=== PATIENT | male | born 1980 | race African-American/Black ===

== ENCOUNTER 2022-02-04 11:33 | Emergency (ER) | payer OTHER ==
[2022-02-04 12:09] LABS: BASOPHILS # (AUTO) 0.1 10^3/uL (0.0-0.1); BASOPHILS % (AUTO) 0.9 %; EOSINOPHILS % (AUTO) 0.5 %; HCT - HEMATOCRIT 48.7 % (42.0-52.0); HGB - HEMOGLOBIN 16.2 g/dL (14.0-18.0); LYMPHOCYTES # (AUTO) 2.6 10^3/uL (1.5-3.5); LYMPHOCYTES % (AUTO) 29.7 %; MEAN CORPUSCULAR HEMOGLOBIN 28.8 pg (27.0-31.0); MEAN CORPUSCULAR HGB CONC 33.3 g/dL (32.0-36.0); MEAN CORPUSCULAR VOLUME 86.7 fL (80.0-94.0); MEAN PLATELET VOLUME 9.1 fL (7.4-11.4); MONOCYTES # (AUTO) 0.7 10^3/uL (0.0-1.0); MONOCYTES % (AUTO) 7.8 %; NEUTROPHILS # (AUTO) 5.3 10^3/uL (1.5-6.6); NEUTROPHILS % (AUTO) 60.9 %; PLT - PLATELET COUNT 278 10^3/uL (130-450); RED BLOOD COUNT 5.62 10^6/uL (4.70-6.10); RED CELL DISTRIBUTION WIDTH 14.2 % (12.0-15.0); WHITE BLOOD COUNT 8.6 x10^3/uL (4.8-10.8)
[2022-02-04 12:22] LABS: ALBUMIN 4.7 g/dL (3.2-5.5); ALBUMIN/GLOBULIN RATIO 1.3 (1.0-2.2); BILIRUBIN,TOTAL 0.7 mg/dL (0.2-1.0); CALCIUM 9.6 mg/dL (8.5-10.3); CREATININE 1.2 mg/dL (0.6-1.2); POTASSIUM 4.2 mmol/L (3.5-5.0); TOTAL PROTEIN 8.2 g/dL (6.7-8.2)
--- NOTE | 2022-02-04 12:30 | XRAY Report ---
PROCEDURE: Chest 1 View X-Ray INDICATIONS: Chest Pain TECHNIQUE: One view of the chest was acquired. COMPARISON: None. FINDINGS: Surgical changes and devices: None. Lungs and pleura: No pleural effusions or pneumothorax. Lungs are clear. Mediastinum: Mediastinal contours appear normal. Heart size is normal. Bones and chest wall: No suspicious bony lesions. Overlying soft tissues appear unremarkable. IMPRESSION: Chest without acute cardiopulmonary abnormalities. No focal airspace disease. Reviewed by: Fabian Perez MD on 02/04/2022 12:29 PM PDT Approved by: Fabian Perez MD on 02/04/2022 12:29 PM PDT Station ID: [id number]
[2022-02-04] MEDS ORDERED: ACETAMINOPHEN 500 MG TABLET PO STA (12:49)
--- NOTE | 2022-02-04 12:51 | ED Physician Documentation ---
PD HPI CHEST PAIN - Stated complaint Stated Complaint: CHEST PX - Chief complaint Chief Complaint: Cardiac - History obtained from History obtained from: Patient - Additional information Additional information: 41-year-old gentleman presents for the evaluation of chest pain. About 2 hours ago while sitting in his desk reading emails he developed right upper quadrant pain that lasted about 30 minutes radiating into the chest. Subsequently the pain went up into the right posterior neck and posterior head which he still has. There is no associated shortness of breath, nausea, fatigue, light sens itivity, pedal edema, calf pain. Risk factors for coronary disease include vaping and his mom suddenly in her 30s of unknown causes. Review of Systems Ten Systems: 10 systems reviewed and negative Constitutional: denies: Fever, Chills Nose: denies: Rhinorrhea / runny nose, Congestion Throat: denies: Dental pain / toothache, Sore throat Cardiac: denies: Chest pain / pressure, Palpitations Respiratory: denies: Dyspnea, Cough PD PAST MEDICAL HISTORY - Present Medications Home Medications: Ambulatory Orders Medication Instructions Recorded Confirmed No Known Home Medications 02/04/22 02/04/22 - Allergies Allergies/Adverse Reactions: Allergies Allergy/AdvReac Type Severity Reaction Status Date / Time No Known Drug Allergies Allergy Verified 02/04/22 11:37 PD ED PE NORMAL - Vitals Vital signs reviewed: Yes - General General: Alert and oriented X 3, No acute distress - HEENT HEENT: PERRL, EOMI - Neck Neck: Supple, no meningeal sign, No bony TTP - Cardiac Cardiac: RRR, No murmur - Respiratory Respiratory: No respiratory distress, Clear bilaterally - Abdomen Abdomen: Normal bowel sounds, Soft, Non tender, Other (I am unable to reproduce the pain with palpation of the neck, occiput, chest wall, or abdomen.) - Back Back: No CVA TTP, No spinal TTP - Derm Derm: No rash - Extremities Extremities: No edema, No calf tenderness / cord - Neuro Neuro: Alert and oriented X 3, Normal speech Results - Vitals Vitals: Vital Signs - 24 hr 02/04/22 02/04/22 11:38 13:42 Temperature 36 C L Heart Rate 84 75 Respiratory 16 12 Rate Blood Pressure 154/105 H 128/73 O2 Saturation 100 100 Oxygen O2 Source Room air - EKG (time done) 1146am Rate: Rate (enter#) (83) Rhythm: NSR Elton: Normal Intervals: Normal [place] QRS: Normal Ischemia: Normal ST segments - Labs Labs: Laboratory Tests 02/04/22 02/04/22 02/04/22 12:02 12:02 12:02 WBC 8.6 RBC 5.62 Hgb 16.2 Hct 48.7 MCV 86.7 MCH 28.8 MCHC 33.3 RDW 14.2 Plt Count 278 MPV 9.1 Neut # (Auto) 5.3 Lymph # (Auto) 2.6 Gordon # (Auto) 0.7 Eos # (Auto) 0.0 Baso # (Auto) 0.1 Absolute Nucleated RBC 0.00 Nucleated RBC % 0.0 Sodium 140 Potassium 4.2 Chloride 101 Carbon Dioxide 28 Anion Gap 11.0 BUN 14 Creatinine 1.2 Estimated GFR (MDRD) 82 L Glucose 89 Calcium 9.6 Total Bilirubin 0.7 AST 21 ALT 20 Alkaline Phosphatase 73 Troponin I High Sens 3.1 Total Protein 8.2 Albumin 4.7 Globulin 3.5 Albumin/Globulin Ratio 1.3 Lipase 34 - Rads (name of study) Single view chest x-ray is unremarkable Radiology: EMP read contemporaneously PD MEDICAL DECISION MAKING - ED course ED course: 41-year-old gentleman with very atypical chest pain. Its been quite migratory which led to thought of dissection especially since he is hypertensive here. CT angiography was negative for same but incidental findings of multiple pulmonary nodules were discussed with him. Wonder if he might of had valley fever, he was stationed at [employer] for 4 years? Necessary follow-up and repeat scanning was discussed. Departure - Departure Disposition: 01 Home, Self Care Clinical Impression: Atypical chest pain Condition: Good Record reviewed to determine appropriate education?: Yes Instructions: ED Chest Pain Atypical Unkn Cause Comments: As discussed, you have multiple small pulmonary nodules which could be scarring from prior infection, but you should have a repeat low-dose chest CT in 6 to 12 months to document stability. [place] Return for new or worsening symptoms. Discharge Date/Time: 02/04/22 14:27
[2022-02-04] MEDS ORDERED: IOVERSOL 320 100 ML VIAL IVP ONE ×2 (13:09→13:41)
[2022-02-04 14:02] VITALS: BP 128/73
--- NOTE | 2022-02-04 14:17 | CT Report ---
PROCEDURE: ANGIO CHEST W/WO INDICATIONS: Chest pain, aorta protocol CONTRAST: IV CONTRAST: Optiray 320 ml: 80 PO CONTRAST: *NO PO CONTRAST TECHNIQUE: After the administration of intravenous contrast, 2 mm axial images were acquired from the pulmonary apices to the posterior costophrenic angles during the arterial phase. In addition, 1 mm lung kernel and 5 mm soft tissue kernel reconstructions were performed. 3-dimensional coronal oblique maximum int ensity projection (MIP) reformats, 8 mm axial MIP, and 5 mm coronal and sagittal MPR reformats were t hen performed through the thorax. For radiation dose reduction, the following was used: automated exp osure control, adjustment of mA and/or kV according to patient size. COMPARISON: Chest radiograph from earlier same day FINDINGS: Image quality: Excellent. Pulmonary arteries: Pulmonary arteries are normal in size, and demonstrate no intraluminal filling d efects to suggest central pulmonary embolism. Lungs and pleura: No acute airspace disease. No septal thickening or nodularity. No pleural effusions or pneumothorax. Central and peripheral airways are patent. A 3 mm right apical nodule seen on image 76, series 7. A 3 mm pleural-based nodule seen in the lateral right upper lobe (image 171/series 7). A 5 mm fissural-based nodule seen on image 221/series 7 which abuts the right minor fissure. There is a 3 mm pleural-based nodule in the lateral left upper lobe (image 60/ series 7) A 3 mm pleural-based nodule in the lateral aspect of the inferior left upper lobe (image 153/series 3 ). A 4 mm anterior left upper lobe nodule seen on image 158/series 7 Mediastinum: Heart size is normal, without pericardial effusion. No mediastinal or hilar adenopathy . Thoracic aorta is normal in caliber and enhancement. Esophagus is normal in caliber. Small Hiatal hernia. Bones and chest wall: No suspicious bony lesions. Ribs and thoracic spine appear intact throughout. No axillary or supraclavicular adenopathy. The thyroid is normal in size and there are no incident al findings. Abdomen: Visualized upper abdominal solid organs appear normal in the early arterial phase of enhanc ement. IMPRESSION: 1. CT chest without acute cardiopulmonary abnormalities. No acute pulmonary emboli identified. No rios dence for aneurysmal dilatation of the thoracic aorta. No aortic dissection seen. 2. Multiple scattered bilateral pulmonary nodules measuring up to 5 mm in size. Recommend follow-up c hest CT in 12 months using low dose protocol to document stability. 3. Small hiatal hernia. CLINICAL RECOMMENDATION STATEMENTS: In patients <35 years with an ITN detected on CT, MRI, or extrathyroidal ultrasound, the Committee re commends further evaluation with dedicated thyroid ultrasound if the nodule is "e1 cm and has no susp icious imaging features, and if the patient has normal life expectancy. In patients "e35 years with an ITN detected on CT, MRI, or extrathyroidal ultrasound, the Committee r ecommends further evaluation with dedicated thyroid ultrasound if the nodule is "e1.5 cm and has no s uspicious imaging features, and if the patient has normal life expectancy. (ACR, 2014) Reviewed by: Fabian Perez MD on 02/04/2022 2:16 PM PDT Approved by: Fabian Perez MD on 02/04/2022 2:16 PM PDT Station ID: [id number]
== END 2022-02-04 14:27 | disposition home or self-care (01) ==
LOC: ED 11:33
DX: R07.89 Other chest pain (principal)
CPT/HCPCS: 36415; 71045; 71275; 80053; 83690; 84484; 85025; 93005; 99283; 99284; A9270; Q9967

== ENCOUNTER 2022-02-12 12:45 | Outpatient (CLI) | payer OTHER ==
--- NOTE | 2022-02-12 14:38 | MRI Report ---
PROCEDURE: Hip RT W/O INDICATIONS: PAIN IN HIP TECHNIQUE: Noncontrast coronal T1 spin echo and STIR through the bony pelvis. Coronal and axial T2 fast spin ec ho with fat saturation, sagittal T1 spin echo, and oblique axial T2 fast spin echo with fat saturatio n through the hip. COMPARISON: None. FINDINGS: Image quality: Excellent. Bones and joints: Bone marrow of the pelvic ring and proximal femurs show normal signal throughout. No intraosseous lesions or fractures. No avascular necrosis of the femoral heads. The visualized l ower lumbar spine appears normally aligned. Tendons: The gluteus medius and minimus tendons appear intact, without associated muscle atrophy. T he iliopsoas tendon appears intact, without adjacent bursal fluid collections. The origin of the ham string tendon is intact at the ischial tuberosity. Labrum and cartilage: The acetabular labrum appears intact in the absence of intra-articular contras t. Cartilage surface of the femoral head appears of normal thickness. The alpha angle of the femur is within normal limits at less than 55 degrees. Soft tissues: Visualized muscles demonstrate normal bulk and internal signal. The proximal sciatic neurovascular bundle appears normal adjacent to the hamstring tendons. No free pelvic fluid. Bladde r wall thickness is normal. Genitourinary structures and bowel loops appear normal where visualized. IMPRESSION: 1. Negative examination. No explanation for hip pain. Reviewed by: Darryn Wu MD on 02/12/2022 2:37 PM PDT Approved by: Darryn Wu MD on 02/12/2022 2:37 PM PDT Station ID: [id number]
== END 2022-02-12 12:46 | disposition home or self-care (01) ==
LOC: DI 12:45
PROVIDERS: ATTEND Student in an Organized Health Care Education/Training Program
DX: M25.551 Pain in right hip (principal)

== ENCOUNTER 2022-07-21 13:00 | Outpatient (CLI) | payer OTHER ==
--- NOTE | 2022-07-21 13:31 | SLEEP CARE CONSULTATION ---
Information from patient questionnaire entered by Cesilia Nassar. I have reviewed and concur with the information entered by Cesilia Nassar. This document represents the service I personally performed and the decisions made by me, Diaz Cantrell MD, [facility]. History of Present Illness Service Date and Time: 07/21/2022 1300 Reason for Visit: New patient Chief Complaint: reports: Unrefreshed sleep, Snoring, Excessive daytime sleepiness, Observed pauses in breathing Snores at night: Yes Observed to quit breathing while asleep: Yes Sleeps alone due to snoring: No Reasons for waking at night: reports: Choking, Snoring, Bathroom Toss, Turn, or Twitch while sleeping: Yes Recalls having dreams: No Feels refreshed in the morning: No Morning headache: Yes Sleepy or fatigued during the day: No Ever fallen asleep while driving: Yes Takes day naps: No Dreams during day naps: No Prior sleep studies: Yes [facility] and Where: [facility] Additional HPI information: I had the pleasure of seeing Mr. Thornton today regarding the possibility of him having a sleep disorder. As you know, he is a 42-year-old gentleman who complains of loud snore, observed apneas, unrefreshed sleep, and excessive daytime sleepiness for the past 3 4 years. He had an in-laboratory polysomnography in [place], [place] 3 years ago and it was negative for significant sleep-disordered breathing. He continues to snore loudly, and his continues to see him quit breathing at night. He can recall waking up on the average of 1 - 2 times during the night. Most of the time he wakes up because of his own snoring, choking, and having to gasp for air. There is a lot of tossing and turning in his sleep. He has somniloquy (sleep talking) but not somnambulism (sleep walking). Generally, there is no recollection of dreams. He usually does not have a morning headache. During the day he complains of feeling sleepy and fatigued. His score on [place] Sleepiness Scale is 14 out of 24. He has fallen asleep while driving and has gone out of the dominick. He usually does not take naps during the day. He has had sleep paralysis. He does not recall having restless leg syndrome. He reports having impaired concentration during the day. - Parasomnia Symptoms Ever been unable to move upon waking from sleep: Yes Walks in sleep: No Talks in sleep: Yes Ever acted out dreams in sleep: No Ever felt weak in the knees when startled or emotional: No Bothered by creepy, crawly, restless sensations in legs: No Problems with memory or concentration: Yes Subjective Initial [place] Sleepiness Scale score: 14 (07/19/2022) Past Medical History Past Medical History: reports: Hypertension Social History The patient's occupation is a AM. Patient is and lives in [place]. Have you smoked in the past 12 months: No Years of smokin Quit date: 2017 Alcohol use: Yes Alcohol amount and frequency: 1-2 drinks every other week Caffeine use: Yes Caffeine amount and frequency: 1 drink a month Family History Family history of sleep disordered breathing: No Allergies and Home Medications Known drug allergies: Yes (lisnopril) Drug allergies reviewed: Yes Home medication list reviewed: Yes Allergy and home medication list: Allergies No Known Drug Allergies Allergy (Verified 02/04/22 11:37) Review of Systems Cardiovascular: reports: high blood pressure Respiratory: reports: wheeze Gastrointestinal: denies: heartburn, difficulty swallowing, nausea, vomitting, diarrhea, abdominal pain, other Urinary: denies: incontinence, frequency, urgency, impotence, other Neurological: denies: headaches, seizure, head trauma, disorientation, speech dysfunction, gait or balance problems, fainting or unconsciousness, other Psychiatric: denies: Attention Deficit Hyperactivity, anxiety, depression, mood disorder, claustrophobia, other Ear/Nose/Throat: denies: nasal congestion, sinus problems, nose bleeds, dry mouth/throat, hoarseness, injury to nose, tonsillectomy, wisdom teeth removed, other Endocrine: denies: thyroid disease, history of goiter, sluggishness, too hot or cold, excessive thirst, increased appetite, increased urination, unexplained weakness, other Musculoskeletal: denies: joint pain, neck pain, back pain, joint swelling, muscle pain or cramping, mobility problems, other Immunologic: denies: sneezing, rash, itching, allergies to food or environment, other Physical Exam Vital signs obtained and entered by: CESILIA Ku MA Blood Pressure: 142/82 (left arm) Cuff size: regular Heart Rate: 94 O2 Saturation: 98 Height: 6 ft 2 in Weight: 222 lb 6.4 oz Body Mass Index: 28.5 BMI Classification: Overweight Neck circumference: 17.5 Mood/affect: Normal HEENT: No craniofacial malformation Nostrils: patent to airflow Turbinates: normal Septum: midline Mouth and throat: narrow oropharynx Soft palate: long Hard palate: normal Uvula: normal Uvula visualization: 25% Mallampati Class III Tongue: normal in size Tonsils: small Chin and jaw: normal size and position Heart: regular rate and rhythm Lungs: clear bilaterally Extremities: no edema or clubbing Neurologic: intact Impression and Plan IMPRESSION: 1. Obstructive Sleep Apnea-Hypopnea Syndrome, as suggested by history of loud and irregular snoring, observed cessation of breath while asleep, nocturnal choking, unrefreshed sleep, morning headache, cognitive impairment, and daytime hypersomnolence. Narrow oropharynx and obesity are common predisposing factors for obstructive sleep apnea-hypopnea syndrome. Untreated obstructive sleep apnea can also cause hypertension. I recommend proceeding to polysomnography to confirm the diagnosis and to assess severity. I informed the patient of what the sleep studies involve and after some discussion, he agreed to proceed. Plan: 1. Schedule polysomnography and return in 1 to 2 weeks after the study to discuss result and initiate therapy. 2. Avoid long distance driving or when feeling sleepy. 3. Avoid alcohol, sedative and muscle relaxant around bedtime. 4. Attempt to lose some weight. Follow up with Sleep Care in: 1-2 months Visit Type: In Office Time Spent with Patient (minutes): 15 Provider Statement: I spent 100% of the Face to Face Visit with the patient with greater than 50% spent counseling the patient and coordination of care.
[2022-07-21 13:32] VITALS: BP 142/82
== END 2022-07-21 13:01 | disposition home or self-care (01) ==
LOC: SC 13:00
PROVIDERS: ATTEND Internal Medicine Pulmonary Disease
DX: R06.83 Snoring (principal); G47.8 Other sleep disorders; R06.81 Apnea, not elsewhere classified; G47.10 Hypersomnia, unspecified; E66.3 Overweight; Z68.28 Body mass index [BMI] 28.0-28.9, adult; Z87.891 Personal history of nicotine dependence
CPT/HCPCS: 99202; 99212

== ENCOUNTER 2022-08-10 19:20 | Outpatient (CLI) | payer OTHER | END 2022-08-10 19:21 | disposition home or self-care (01) | LOC: SC 19:20 | PROVIDERS: ATTEND Internal Medicine Pulmonary Disease | DX: R06.83 Snoring (principal); G47.8 Other sleep disorders; R06.81 Apnea, not elsewhere classified; R51.9 Headache, unspecified; G47.10 Hypersomnia, unspecified | CPT/HCPCS: 95810 ==

== ENCOUNTER 2022-11-03 13:44 | Outpatient (CLI) | payer OTHER ==
[2022-11-03 15:08] VITALS: BP 148/100
--- NOTE | 2022-11-03 15:09 | SLEEP CARE CONSULTATION ---
Information from patient questionnaire entered by Cesilia Nassar. I have reviewed and concur with the information entered by Cesilia Nassar. This document represents the service I personally performed and the decisions made by me, Diaz Cantrell MD, [facility]. History of Present Illness Service Date and Time: 11/03/2022 1344 Initial [place] Sleepiness Scale score: 14 (07/19/2022) Current [place] Sleepiness Scale score: 17 (11/03/22) Additional HPI information: Mr. Thornton returned for follow up of the sleep study he had on 08/10/2022. The polysomnography showed that the patient had normal sleep efficiency. The sleep architecture was abnormal for sleep fragmentation and reduced amount of time spent in slow wave sleep (N3). Respiratory monitoring showed no significant sleep disordered breathing (AHI = 3.8) or hypoxia (richa oxygen saturation of 88 %). The few respiratory events occurred almost exclusively during supine sleep (supine AHI = 6.0; non-supine = 1.42). Snore was moderate to loud in intensity. There was no significant periodic leg movement of sleep. Cardiac rhythm was normal sinus rhythm without significant arrhythmia. No abnormal behavior (parasomnia) observed during the night. The patient was informed of these findings. I explained to him that the sleep study was normal. The result is similar to his earlier sleep study in [facility]. Sleep Study - Results Type of Sleep Study: Polysomnography (COMPLETED 08-10-23) Prior sleep studies: Yes Year and Where: [facility] Allergies and Home Medications Drug allergies reviewed: Yes Home medication list reviewed: Yes Allergy and home medication list: Allergies No Known Drug Allergies Allergy (Verified 02/04/22 11:37) Review of Systems Review of systems same as previous: Yes Physical Exam Vital signs obtained and entered by: CESILIA Ku MA Blood Pressure: 148/100 (LEFT ARM) Cuff size: regular Heart Rate: 82 O2 Saturation: 98 Height: 6 ft 2 in Weight: 215 lb 3.2 oz Body Mass Index: 27.6 BMI Classification: Overweight Impression and Plan IMPRESSION: 1. Primary Snore (ICD-10 R06.83), moderate to loud, but no significant sleep disordered breathing except when the patient slept supine. The patient is recommended to avoid sleeping supine. No other treatment is necessary at this time. PLAN: 1. Avoid sleeping supine. 2. Avoid weight gain. 3. Return for a follow up on as needed basis. Counseling Topics: Weight control Follow up with Sleep Care in: as needed Visit Type: In Office Time Spent with Patient (minutes): 15 Provider Statement: I spent 100% of the Face to Face Visit with the patient with greater than 50% spent counseling the patient and coordination of care.
== END 2022-11-03 13:45 | disposition home or self-care (01) ==
LOC: SC 13:44
PROVIDERS: ATTEND Internal Medicine Pulmonary Disease
DX: R06.83 Snoring (principal); E66.3 Overweight; Z68.27 Body mass index [BMI] 27.0-27.9, adult
CPT/HCPCS: 99212